=== PATIENT | female | born 1975 | race Caucasian/White ===

== ENCOUNTER 2020-12-01 07:20 | Day surgery (SDC) | payer BC ==
[~2020-12-01] VITALS: Ht 167.6 cm; Wt 76.2 kg
[~2020-12-01 07:20] MED LIST: BUPROPION XL300 MG PO; LISINOPRIL10 MG PO; MERIBIN5 MG PO; MULTI-DAY VITAM1 TAB PO; OMEPRAZOLE40 MG PO; TOPROL XL25 MG PO; VITAMIN C500 M1 PO; VITAMIN D325 MC1 PO
[2020-12-01 07:38] LABS: BASOPHILS 0.8 % (0-2); EOSINOPHILS 1.1 % (0-7); HEMATOCRIT 38.9 % (36.0-48.0); HEMOGLOBIN 12.4 g/dL (12-16); LYMPHOCYTES 27.6 % (15-50); MCH 25.2 pg (26.0-34.0); MCHC 31.8 g/dL (31.0-37.0); MCV 79.1 fL (80.0-100.0); MEAN PLATELET VOLUME 6.4 fL (7.4-10.4); MONOCYTES 5.9 % (2-11); NEUTROPHILS 64.6 % (40-80); PLATELET COUNT 433 10x3/uL (130-400); RBC 4.91 10x6/uL (4.00-5.40); RDW 15.5 % (11.5-14.5)
[2020-12-01 07:53] LABS: CALC OSMOLALITY 277 mosm/kg (275-300); CALCIUM 8.7 mg/dL (8.5-10.1); CARBON DIOXIDE 25.4 mmol/L (21.0-32.0); CHLORIDE - SERUM 104 mmol/L (98-107); CREATININE - SERUM 0.8 mg/dL (0.6-1.3); GLUCOSE 96 mg/dL (74-106); HCG SERUM NEGATIVE (NEGATIVE); POTASSIUM - SERUM 4.3 mmol/L (3.5-5.1); SODIUM 139 mmol/L (136-145); UREA NITROGEN 12 mg/dL (7-18); eGFR NON AFRICAN AMERICAN 81 mL/min (90-120)
[2020-12-01] MEDS ORDERED: REQUIP0.25 MG (08:27)
[2020-12-01 08:56] VITALS: Ht 167.6 cm; Wt 76.2 kg
--- NOTE | 2020-12-01 13:40 | NUR ---
PT ABLE TO URINATE. HAD SOME BLEEDING IN TOILET FROM INCISION. ASSESSED INCISION SITE AFTER PT BACK TO BED, SLIGHT OOZING OF BLOOD NOTED. DONY PAD WITH MESH UNDERWEAR IN PLACE. ICE PACK PROVIDED TO PT FOR COMFORT. IV THEN DC'D WITH CATH TIP INTACT. PT GETTING DRESSED FOR DISCHARGE.
--- NOTE | 2020-12-01 13:54 | NUR ---
DISCHARGED VIA W/C, ACCOMPANIED BY THIS NURSE, TO POV WITH SPOUSE DRIVING. ALL BELONGINGS WITH PT/SPOUSE.
== END 2020-12-01 13:54 | disposition home or self-care (01) ==
LOC: D.OPS 07:20
PROVIDERS: Anesthesiology; ATTEND Obstetrics & Gynecology Maternal & Fetal Medicine
DX: N90.7 Vulvar cyst (principal)